=== PATIENT | female | born 1970 | race Caucasian/White ===

== ENCOUNTER 2022-09-04 18:10 | Outpatient (CLI) | payer SELFPAY | END 2022-09-04 18:11 | disposition home or self-care (01) | LOC: NFLDREF 09-05 21:47 | PROVIDERS: Visit Provider Student in an Organized Health Care Education/Training Program | DX: R30.0 Dysuria (principal); H61.20 Impacted cerumen, unspecified ear; N39.0 Urinary tract infection, site not specified | CPT/HCPCS: 87086; 87186 ==